=== PATIENT | female | born 1995 | race Caucasian/White ===

== ENCOUNTER 2023-07-11 00:35 | Emergency (ER) | payer OTHER ==
[~2023-07-11] VITALS: Ht 162.6 cm; Wt 59.0 kg
[~2023-07-11 00:35] MED LIST: NALO4SPR NS
[2023-07-11 00:40] VITALS: BP 129/75; PULSE 89; RESP 16; TEMP 97.8; O2SAT 98
== END 2023-07-11 03:30 | disposition left against medical advice (07) ==
LOC: MED 00:35
DX: K59.00 Constipation, unspecified (principal); Z53.21 Procedure and treatment not carried out due to patient leaving prior to being seen by health care provider
CPT/HCPCS: 99281

== ENCOUNTER 2023-07-11 23:03 | Emergency (ER) | payer OTHER ==
[~2023-07-11] VITALS: Ht 162.6 cm; Wt 63.5 kg
[2023-07-11 23:11] VITALS: BP 116/74; PULSE 105; RESP 20; TEMP 97.9; O2SAT 99
[2023-07-12 04:07] VITALS: BP 120/83; PULSE 87; RESP 18; O2SAT 98
[2023-07-12] MEDS ORDERED: OLANZapine 5 MG ODT SL ONE (04:10)
== END 2023-07-12 04:52 | disposition home or self-care (01) ==
LOC: MED 23:03
DX: G47.00 Insomnia, unspecified (principal)
CPT/HCPCS: 99283

== ENCOUNTER 2023-08-11 22:22 | Emergency (ER) | payer OTHER ==
[~2023-08-11] VITALS: Ht 162.6 cm; Wt 54.4 kg
[2023-08-11 22:28] VITALS: BP 120/77; PULSE 105; RESP 16; TEMP 96.4; O2SAT 97
[2023-08-12 00:10] VITALS: BP 120/77; PULSE 105; RESP 16; TEMP 96.4; O2SAT 97
[2023-08-12] MEDS ORDERED: CEPH-588 PO (04:01)
== END 2023-08-11 23:50 | disposition left against medical advice (07) ==
LOC: MED 22:22
DX: R30.0 Dysuria (principal); Z53.21 Procedure and treatment not carried out due to patient leaving prior to being seen by health care provider
CPT/HCPCS: 99281

== ENCOUNTER 2023-08-12 02:24 | Emergency (ER) | payer OTHER ==
[~2023-08-12] VITALS: Ht 162.6 cm; Wt 54.4 kg
[2023-08-12 02:49] VITALS: BP 124/74; PULSE 95; RESP 16; TEMP 97.5; O2SAT 97
[2023-08-12 03:07] VITALS: O2SAT 97
[2023-08-12 03:09] LABS: APPEARANCE,URINE HAZY (CLEAR); BILIRUBIN,URINE NEGATIVE (NEGATIVE); BLOOD, URINE TRACE-I (NEGATIVE); COLOR,URINE YELLOW (YELLOW); LEUKOCYTE ESTERASE ,URINE 2+ (NEGATIVE); NITRITE, URINE NEGATIVE (NEGATIVE); PROTEIN,URINE NEGATIVE (NEGATIVE); UGLUCOSE NEGATIVE (NEGATIVE); UROBILINOGEN,URINE 0.2 EU/dL (0.2 - 1)
[2023-08-12 03:46] LABS: AMPHETAMINE, URINE POSITIVE ng/ml (NEG <=1000); BARBITURATE, URINE NEGATIVE ng/ml (NEG <=200); BENZODIAZEPINE, URINE NEGATIVE ng/mL (NEG <=200); CANNABINOID, URINE POSITIVE ng/mL (NEG <=50); COCAINE, URINE NEGATIVE ng/mL (NEG <=300); OPIATE, URINE NEGATIVE ng/mL (NEG <=2000); PHENCYCLIDINE SCREEN,URINE NEGATIVE ng/mL (NEG <=25)
[2023-08-12 03:49] LABS: RBC,URINE 0-5 /HPF (0-5); WBC,URINE >25 (MANY) /HPF (0-5)
[2023-08-12 03:50] LABS: BACTERIA,URINE 1+ /HPF (None Seen)
[2023-08-12] MEDS ORDERED: cephALEXin 500 MG CAP PO ONE (04:00)
[2023-08-12] MEDS ORDERED: CEPH-588 PO (04:01)
== END 2023-08-12 04:31 | disposition home or self-care (01) ==
LOC: MED 02:24
DX: N39.0 Urinary tract infection, site not specified (principal); Z79.899 Other long term (current) drug therapy; Z79.2 Long term (current) use of antibiotics
CPT/HCPCS: 80305; 81001; 81025; 87086; 99283